=== PATIENT | male | born 2000 | race Caucasian/White ===

== ENCOUNTER → 2022-01-27 | Emergency (ER) | payer OTHER ==
[2022-01-27 14:34] VITALS: BP 138/92; PULSE 92; TEMP 98; BMI 33.7
== END ==
LOC: JER 14:25
DX: R55 Syncope and collapse (principal)
CPT/HCPCS: 93005; 93010; 99283-25

== ENCOUNTER 2023-12-23 22:26 | Emergency (ER) | payer OTHER ==
[2023-12-23 22:34] VITALS: BP 104/56; PULSE 58; RESP 18; TEMP 98; BMI 32.5
[2023-12-23] MEDS ORDERED: ACETAMINOPHEN 500 MG TABLET (FP) ONE (23:07)
[2023-12-23] MEDS: ACETAMINOPHEN 500 MG TABLET (FP) PO ONE (23:08)
[2023-12-23] MEDS ORDERED: IBUPROFEN 400 MG TABLET (FP) PO ONE (23:40)
[2023-12-23] MEDS ORDERED: DIPHTH,PERTUSS(ACELL),TET 0.5 ML DISP.SYRIN IM ONE (23:40)
[2023-12-23] MEDS: DIPHTH,PERTUSS(ACELL),TET 0.5 ML DISP.SYRIN IM ONE (23:42)
[2023-12-23] MEDS: IBUPROFEN 400 MG TABLET (FP) PO ONE (23:42)
[2023-12-23] MEDS: CIPROFLOXACIN 500 MG TABLET (RESTRICTED TO ID) PO ONE (23:49)
== END 2023-12-24 01:15 | disposition home or self-care (01) ==
LOC: JER 22:26
PROC: 3E0234Z Introduction of Serum, Toxoid and Vaccine into Muscle, Percutaneous Approach (ICD-10-PCS; principal; 2023-12-23)
DX: S91.332A Puncture wound without foreign body, left foot, initial encounter (principal); W56.52XA Struck by other fish, initial encounter; Z23 Encounter for immunization
CPT/HCPCS: 73630-TC-LT; 90471; 90715; 99283-25